=== PATIENT | male | born 1960 | race Caucasian/White ===

== ENCOUNTER 2023-06-15 08:16 | Day surgery (SDC) | payer OTHER ==
[~2023-06-15] VITALS: Ht 182.9 cm; Wt 64.2 kg
[2023-06-15] MEDS ORDERED: ASPIRIN E.C. 8181 MG PO (08:45)
[2023-06-15] MEDS ORDERED: EFFIENT10 MG PO ×2 (08:45→08:48)
[2023-06-15] MEDS ORDERED: NORVIR100 M1 PO (08:46)
[2023-06-15] MEDS ORDERED: PROTONIX 40MG T40 MG PO (08:46)
[2023-06-15] MEDS ORDERED: TRUVADA PO (08:47)
[2023-06-15] MEDS ORDERED: TOPROL XL 25MG25 MG PO (08:48)
[2023-06-15] MEDS ORDERED: LIPITOR20 MG PO (08:49)
[2023-06-15] MEDS ORDERED: SYNTHROID0.125 MG/T PO (08:49)
[2023-06-15] MEDS ORDERED: REYATAZ300 MG PO (08:49)
[2023-06-15 09:48] VITALS: BP 124/74; PULSE 70; TEMP 97.9
[2023-06-15 10:03] VITALS: BP 131/76; PULSE 81
[2023-06-15 10:25] VITALS: BP 96/69; PULSE 80; TEMP 97.5
[2023-06-15 10:40] VITALS: BP 102/68; PULSE 60
[2023-06-15 11:03] VITALS: BP 117/81; PULSE 75; TEMP 98.5
--- NOTE | 2023-06-15 11:59 | NUR ---
0948 PT RETURNED TO BAY 4 POST PROCEDURE. RECEIVED REPORT FROM CJ HUGHES. PT IS ALERT AND ORIENTED, ANSWERING QUESTIONS, BREATHING EVEN AND UNLABORED, ABLE TO AMBULATE FROM CART TO RECLINER. 0953 PT GIVEN ORANGE JUICE AND A BLUEBERRY MUFFIN FOR A PO CHALLENGE. TOLERTAED WELL 1015 PRINTED PHYSICIAN DISCHARGE INSTRUCTIONS AND PT EDUCATIONAL MATERIALS REVIEWED W/ PT. QUESTIONS INVITED AND ANSWERED. FR. JONES IN TO DISCUSS FINDINGS AND PLAN WITH PT. 1035 PT TO LOBBY VIA WHEEL CHAIR FOR A RIDE HOME WITH HER VIA POV.
--- NOTE | 2023-06-15 12:26 | NUR ---
1025 PT RETURNED TO BAY 5 POST PROCEDURE. RECEIVED REPORT FROM CJ VASQUEZ. PT IS ALERT AND ORIENTED, BREATHING EVEN AND UNLABORED, ABLE TO AMBULATE FROM THE CART TO THE RECLINER. 1030 PT GIVEN ORANGE JUICE AND CHOCOLATE PUDDING FOR A PO CHALLENGE. TOLERATED WELL. 1048 PRINTED PHYSICIAN DISCHARGE INSTRUCTIONS AND PATIENT EDUCATIONAL MATERIALS REVIEWED W/ PT AND HIS DAUGHTER IN LAW. QUESTIONS INVITED AND ANSWERED. DR. JONES IN TO DISCUSS FINDINGS AND PLAN. 1055 PT TO LOBBY VIA WHEEL CHAIR FOR RIDE HOME WITH FAMILY IN POV.
== END 2023-06-15 10:55 | disposition home or self-care (01) ==
LOC: SDCO 08:16
DX: Z12.11 Encounter for screening for malignant neoplasm of colon (principal); D12.0 Benign neoplasm of cecum; D12.2 Benign neoplasm of ascending colon; D12.4 Benign neoplasm of descending colon; K64.0 First degree hemorrhoids; F17.210 Nicotine dependence, cigarettes, uncomplicated
CPT/HCPCS: J2704; J7120